=== PATIENT | male | born 1950 | race Hispanic/Latino ===

== ENCOUNTER 2025-01-27 06:23 | Day surgery (SDC) | payer OTHER ==
[2025-01-27] VITALS (11 sets, daily range): BP systolic 138–163; BP diastolic 65–76; PULSE 61–69; RESP 14–18; TEMP 97.1–98.6
[~2025-01-27] VITALS: Ht 172.7 cm; Wt 75.3 kg
[~2025-01-27 06:23] MED LIST: ASCO250T70 PO; CALC-1009 PO; EMPA10TA PO; GLIM4TAB36 PO; LACT10SO9 PO; MAGN100T5 PO; METF-444 PO; METF-446 PO; MULT-1367 PO; PANT40TA55 PO; PROP10TA72 PO; SIMV40TA59 PO
[2025-01-27] MEDS ORDERED: GLIM1TAB56 PO (06:54)
[2025-01-27] MEDS ORDERED: METF-444 PO (06:54)
[2025-01-27] MEDS ORDERED: SIMV5TAB58 PO (06:54)
[2025-01-27] MEDS ORDERED: CARV6.25 PO (06:55)
[2025-01-27] MEDS: 0.9%NACL 1000ML 1,000 ML IV ONE (07:02)
[2025-01-27] MEDS ORDERED: LIDOCAINE HCL 400MG/20ML VIAL ONE (07:37)
--- NOTE | 2025-01-27 08:56 | NUR ---
Full and complete discharge instructions given to Patient and Family both verbally and in writing. Tolerated fluids and voided in bathroom. PIV removed with catheter tip intact. W/C to POV with Family to home.
== END 2025-01-27 09:00 | disposition home or self-care (01) ==
LOC: ENDO 06:23 → DAH 06:23 → ENDO 09:00
PROVIDERS: ATTEND Internal Medicine Gastroenterology
DX: R13.10 Dysphagia, unspecified (principal); K29.40 Chronic atrophic gastritis without bleeding; K31.A0 Gastric intestinal metaplasia, unspecified; K76.6 Portal hypertension; K31.7 Polyp of stomach and duodenum; I85.00 Esophageal varices without bleeding; E11.9 Type 2 diabetes mellitus without complications; K21.9 Gastro-esophageal reflux disease without esophagitis; E78.5 Hyperlipidemia, unspecified; M19.90 Unspecified osteoarthritis, unspecified site; Z86.2 Personal history of diseases of the blood and blood-forming organs and certain disorders involving the immune mechanism; Z79.899 Other long term (current) drug therapy; Z98.890 Other specified postprocedural states
CPT/HCPCS: 82948; 43239; 43244; 43251; J3490; J7030 ×2; J2704; A4620; A4215 ×2; A4223; A4657; A7002; A4222; A4221; A4663; A4606